=== PATIENT | male | born 1980 | race African-American/Black ===

== ENCOUNTER 2019-07-23 05:40 | Emergency (ER) | payer OTHER ==
[~2019-07-23] VITALS: Ht 182.9 cm; Wt 99.8 kg
[2019-07-23 06:20] VITALS: TEMP 97.1
[2019-07-23 07:13] LABS: PLATELET COUNT 273 K/uL (142-355)
[2019-07-23 07:14] LABS: POTASSIUM 3.6 mmol/L (3.6-5.2)
[2019-07-23 07:22] LABS: PARTIAL THROMBOPLASTIN TIME 25.4 SECONDS (24.5-33.6)
[2019-07-23 07:56] VITALS: BP 153/72
== END 2019-07-23 10:50 | disposition still patient (30) ==
LOC: ED 05:40
PROVIDERS: Hospitalist
DX: R10.84 Generalized abdominal pain (principal); R11.2 Nausea with vomiting, unspecified; K52.89 Other specified noninfective gastroenteritis and colitis
CPT/HCPCS: 36415; 80053; 81000; 82150; 83605; 83690; 85027; 85610; 85730; 87040; 96360; 96365; 96375; 99284; J1170; J2405; J2543; Q9963